=== PATIENT | male | born 1980 | race African-American/Black ===

== ENCOUNTER 2020-04-11 18:34 | Emergency (ER) | payer SELFPAY ==
[~2020-04-11] VITALS: Ht 175.3 cm; Wt 100.0 kg
[2020-04-11] MEDS ORDERED: SODIUM CHLORIDE 0.9% 1,000 ML IV ONE (20:00)
[2020-04-11 20:22] LABS: EOSINOPHILS % 2.6 % (0.0-5.0); HEMATOCRIT. 34.5 % (42.0-52.0); HEMOGLOBIN. 11.8 g/dL (14.0-18.0); LYMPHOCYTES % 34.7 % (20.0-50.0); MEAN CORPUSCULAR HEMOGLOBIN 31.6 pg (28.0-32.0); MEAN CORPUSCULAR VOLUME 91.9 fL (80.0-94.0); MEAN PLATELET VOLUME 9.3 fl (7.4-10.4); MONOCYTES % 11.4 % (2.0-8.0); NEUTROPHILS % 50.3 % (40.0-76.0); PLATELET 269 x1000/uL (130-400); RED BLOOD CELL COUNT 3.75 mill/uL (4.7-6.1); RED CELL DISTRIBUTION WIDTH 14.8 % (11.6-14.6)
[2020-04-11 20:30] VITALS: BP 160/100
[2020-04-11 20:34] LABS: CHLORIDE 109 mEq/L (98-107)
[2020-04-11 20:39] LABS: ETHANOL BLOOD < 10 mg/dL
== END 2020-04-11 22:00 | disposition left against medical advice (07) ==
LOC: ER 18:34
DX: R41.82 Altered mental status, unspecified (principal); F17.200 Nicotine dependence, unspecified, uncomplicated; F12.10 Cannabis abuse, uncomplicated; I49.9 Cardiac arrhythmia, unspecified; E86.0 Dehydration
CPT/HCPCS: 36415; 80053; 80320; 82962; 85025; 93005; 96360; 99284; J7030; G0480